=== PATIENT | male | born 1985 | race Caucasian/White ===

== ENCOUNTER 2021-08-15 16:17 | Emergency (ER) | payer OTHER, SELFPAY ==
--- NOTE | ~2021-08-15 | CT_ITS ---
EXAMINATION: CT LUMBAR SPINE WITHOUT CONTRAST CLINICAL INFORMATION: Lower back pain COMPARISON: None TECHNIQUE: Helical axial noncontrast images through the lumbar spine were obtained with coronal and sagittal reformatted images. This CT examination was performed using dose optimization techniques as appropriate, variously including the following: *Automated exposure control *Adjustment of mA and/or kV according to patient size (this includes techniques or standardized protocols for targeted exams where dose is matched to indication/reason for exam; i.e. extremities or head) *Use of iterative reconstruction technique DLP; 547 mGy-cm FINDINGS: Normal sagittal alignment. Vertebral body and disc heights are maintained. No fracture seen. Mild chronic facet arthritic changes on the right at L5-S1. Posterior elements are intact. Normal caliber aorta. No retroperitoneal mass. Mild degenerative changes of the sacroiliac joints, right greater than left. CT/CT lumbar spine wo con IMPRESSION: No acute osseous abnormality of the lumbar spine. No fracture seen.
--- NOTE | ~2021-08-15 | XR_ITS ---
EXAMINATION: PELVIS AND RIGHT KNEE CLINICAL INFORMATION: Pelvic and knee pain COMPARISON: CT lumbar spine same day TECHNIQUE: Single view pelvis, 4 views right knee FINDINGS: The pelvis is slightly rotated. Some minimal degenerative changes are present in the hips. Bony abnormality medial to the left acetabulum is secondary to rotation and is not present on the medical appointment scheduler film for the lumbar spine CT performed just a few minutes afterwords. No fractures are seen. No significant bone joint or soft tissue abnormality is seen involving the right knee. No fracture is seen. XR/XR knee RT 4V IMPRESSION: No evidence of an acute traumatic injury involving the pelvis or right knee.
--- NOTE | ~2021-08-15 | XR_ITS ---
EXAMINATION: XR ankle RT min 3V, XR foot RT min 3V CLINICAL INFORMATION: Pain to ankle. Right foot pain. COMPARISON: None. TECHNIQUE: AP and oblique views of the right ankle. AP, oblique, and lateral views of the right foot. FINDINGS: There is a comminuted fracture of the calcaneus. The lucency extends from the plantar and posterior cortex of the calcaneus to the cortex centrally, possibly involving the subtalar joint. The talus appears intact. The midfoot and metatarsals are normal. The phalanges are normal. No widening of the ankle mortise. The talar dome is intact. XR/XR ankle RT min 3V IMPRESSION: Comminuted fracture of the calcaneus with possible extension to the subtalar joint. The appearance suggests a high energy mechanism of injury which can be associated with other fractures, including compression fractures of the spine. Recommend correlation with history and further imaging as appropriate.
--- NOTE | ~2021-08-15 | CT_ITS ---
EXAMINATION: CT ankle RT wo con CLINICAL INFORMATION: Ankle pain. COMPARISON: Radiographs earlier today TECHNIQUE: Noncontrast helical axial CT images through the right ankle were obtained. FINDINGS: There is a highly comminuted calcaneal fracture with intra-articular extension. The fracture lines extend to the posterior (subtalar) facet, middle facet, and anterior facet with up to 4 mm displacement. The talus is intact. No disruption of the ankle mortise. The distal tibia and fibula are normal. Normal tarsal-metatarsal alignment. Diffuse soft tissue swelling. CT/CT ankle RT wo con IMPRESSION: Highly comminuted calcaneal fracture with intra-articular extension as described above.
--- NOTE | ~2021-08-15 | XR_ITS ---
EXAMINATION: XR ankle RT min 3V, XR foot RT min 3V CLINICAL INFORMATION: Pain to ankle. Right foot pain. COMPARISON: None. TECHNIQUE: AP and oblique views of the right ankle. AP, oblique, and lateral views of the right foot. FINDINGS: There is a comminuted fracture of the calcaneus. The lucency extends from the plantar and posterior cortex of the calcaneus to the cortex centrally, possibly involving the subtalar joint. The talus appears intact. The midfoot and metatarsals are normal. The phalanges are normal. No widening of the ankle mortise. The talar dome is intact. XR/XR foot RT min 3V IMPRESSION: Comminuted fracture of the calcaneus with possible extension to the subtalar joint. The appearance suggests a high energy mechanism of injury which can be associated with other fractures, including compression fractures of the spine. Recommend correlation with history and further imaging as appropriate.
--- NOTE | ~2021-08-15 | XR_ITS ---
EXAMINATION: PELVIS AND RIGHT KNEE CLINICAL INFORMATION: Pelvic and knee pain COMPARISON: CT lumbar spine same day TECHNIQUE: Single view pelvis, 4 views right knee FINDINGS: The pelvis is slightly rotated. Some minimal degenerative changes are present in the hips. Bony abnormality medial to the left acetabulum is secondary to rotation and is not present on the ornamental ironworker helper film for the lumbar spine CT performed just a few minutes afterwords. No fractures are seen. No significant bone joint or soft tissue abnormality is seen involving the right knee. No fracture is seen. XR/XR pelvis 1-2V IMPRESSION: No evidence of an acute traumatic injury involving the pelvis or right knee.
[2021-08-15 16:32] VITALS: BP 160/98; PULSE 80; O2SAT 100
--- NOTE | 2021-08-15 16:40 | ED_ITS ---
HPI - Extremity Injury (Lower) General Chief Complaint: Extremity Injury, Lower Stated Complaint: R Ankle Pain /injury Time Seen by Provider: 08/15/21 16:40 Source: patient and EMS Mode of arrival: EMS Limitations: no limitations History of Present Illness HPI Narrative: This is a 35-year-old male presenting to the emergency department with complaints of right ankle/foot/heel pain status post falling off of a ladder that was on the trailer of a truck about ten feet. Patient landed on bilateral lower extremities, however he thinks most impact was on right foot he immediately started experiencing pain to his right ankle, heel and foot. Pain is worse in heel . He reports 10/10 pain to ankle and foot. Worse with movement better at rest. Tells me he cant bear weight. Able to wiggle bilateral toes, move ankle however with pain. Brought in by EMS.When he fell he did not hit his head, did not lose consciousness. Denies numbness, paresthesias, back pain, knee pain, changes in bowel habits. Appears very uncomfortable. MD complaint: ankle injury and foot injury Onset (ago): minute(s) (30) Type of Injury: blunt Severity: severe Severity scale (1-10): 10 Relieving factors: immobilization Exacerbating factors: movement Context: fall and direct blow Other symptoms: none Related Data Previous Rx's Medication Instructions Recorded oxycodone 5 mg capsule 5 mg PO Q6H PRN #14 cap 08/15/21 Allergies Allergy/AdvReac Type Severity Reaction Status Date / Time Sulfa (Sulfonamide Allergy Unknown Verified 08/15/21 16:56 Antibiotics) Review of Systems Review of Systems: Constitutional : No Fever, No Chills, Cardiovascular : No Chest Pain, No SOB Respiratory : No Dyspnea Gastrointestinal : No abdominal pain Musculoskeletal : No Joint Swelling, + joint pain Skin : No rash, No skin laceration Neuro : No Weakness, No Numbness, No tingling Psych : No SI/HI Yes all other systems are reviewed and are negative [facility] Past Medical History Attestation statement: The following information was validated with the patient. Source: old records reviewed and nursing notes reviewed Medical History (Updated 08/15/21 @ 21:56 by DAYAMI Lyon) Asthma Social History Social History Advance Directives: No Advance Directives Information Provided: No Physical Exam Vital Signs: Vital Signs: Last Vital Signs Temp 98.6 F 08/15/21 16:50 Pulse 86 08/15/21 16:50 Resp 18 08/15/21 16:50 BP 153/78 H 08/15/21 16:50 Pulse Ox 99 08/15/21 16:50 BMI result Body Mass Index 31.6 VSS Appearance: Alert.? Oriented X3.? No acute distress.?Appears uncomfortable Head: Normocephalic, atraumatic, no step-offs or deformities Eyes: Pupils equal, round and reactive to light.? ENT: Pharynx normal.? Neck: Normal inspection.? Neck supple.? CVS: Normal heart rate and rhythm.? Pulses normal.? Respiratory: No respiratory distress.? Breath sounds normal.? Abdomen: Soft and nontender.? Skin: Skin warm and dry.? Normal skin color.? Normal skin turgor.? Extremities: No lower extremity edema.? No calf ttp. 5/5 strength to bilateral upper and lower extremities. Bilateral lower extremities with 2+ DP and PT pulses. Cap refil to bilateral lower extremities < 2 seconds. Full ROM b/l however severe pain with rom of right ankle and toes on right. Severe pain with palpation of right heel. No evident step offs or deformities. No eccymosis or edema b/l to lower extremities. No foot drop b/l Back: No midline tenderness, no C-spine tenderness, full range of motion, no CVA tenderness bilaterally Neuro: Oriented X 3.? No motor deficit.? No sensory deficit. CN 2-12 intact . No saddle paresthesias. Two-point extinction intact to bilateral lower extremities. Course Reevaluation(s) Reevaluation #1: Spoke to ortho Dr. Peña who recommends a bulky love splint- (very well patted splint posterior slab w/ loose padding --> 3 way splint --> soco wrap) . Crutches non weight bearing. See ortho . He also recommends a CT of ankle which has been ordered at this time. Time: 21:53 Reevaluation #2: Patient placed in a Bulky Love Splint by myself and Dr. Dumont. After application of splint neurovascularly intact sensation intact to right lower extremity patient able to wiggle his fingers capillary refill less than 2 seconds. Gave him crutches advised him to return with new and worsening symptoms. I advised him to follow-up with orthopedics on . Time: 21:54 MDM - Extremity Injury (Lower) MDM Narrative Medical decision making narrative: 1643 35 yo m no pmhx presents with severe right ankle/ foot/ heel pain s/p falling off a trailer onto his feet about 10 feet. Reports majory of impact was to RLE. PE w/ 5/5 strength to bilateral upper and lower extremities. Bilateral lower extremities with 2+ DP and PT pulses. Cap refil to bilateral lower extremities < 2 seconds. Full ROM b/l howver pain with rom of right ankle and toes on right. Severe pain with palpation of right heel. No evident step offs or deformities. No eccymosis or edema b/l to lower extremities. No foot drop b/l Likely calcaneus fracture to right Plan- xray. pain meds Due to this injury being a high impact injury I will also obtain films of the lower back to rule out compression fracture. This mechanism injury would put him at high risk of obtaining compression fracture to the lumbar region as well as a compression fracture in the pelvic/knees. Medical Records Attestation: I reviewed the patient's medical records. Lab Data Attestation: I reviewed the patient's lab results. Critical Care Time Critical Care Time Critical Care Time: Yes Total Critical Care Time: 35 Attestation: I attest to this time spent taking care of the patient obtaining history, physical reviewing images, reviewing medical history speaking to a specialist , speaking to my attending. Discharge Plan Discharge Clinical Impression: Comminuted fracture, Calcaneal fracture Patient Disposition: Home, Self-Care Instructions: Crutch Instructions (ED), Calcaneal Fracture (ED), R.I.C.E. Treatment (ED) Additional Instructions: Take your medications as prescribed. If you were prescribed antibiotics today, it is important that you take your medication to their entirety, do not skip any doses, do not finish them early. Follow-up with your primary care provider this week. Follow up with Orthopedics on . Return to the emergency department with new or worsening symptoms. Such as severe pain, swelling to the right lower extremity, loss of sensation, loss of movement of toes to right lower extremity, fevers, chills, shortness of breath, nausea, vomiting, chest pain, tingling. DO NOT bear weight on the lower extremity In case of emergency call 911 Prescriptions: New oxycodone 5 mg capsule 5 mg PO Q6H PRN (Reason: pain) Qty: 14 0RF Rx Instructions: Patient can partially filled prescription upon request Referrals: Kareem Peña MD [Physician] - 3 days Physician,Darryl J [Primary Care Provider] - 2 days Stand Alone Forms: Work/School Release
[2021-08-15 16:50] VITALS: BP 153/78; PULSE 86; RESP 18; TEMP 37; O2SAT 99; BMI 31.6
[2021-08-15] MEDS: HYDROmorphone HCl 1 MG/ML SYRINGE IVPUSH ×2 (17:04→17:06)
[2021-08-15] MEDS: HYDROmorphone HCl 0.5 MG/0.5 ML SYRINGE IVPUSH (20:37)
[2021-08-15 21:41] VITALS: BP 123/71; PULSE 104; RESP 18; O2SAT 97
--- NOTE | 2021-08-16 05:49 | PC.NURSE ---
I assisted with the care of this pt while he was in the ED per request Anitha Yan RN. Per request of Anitha the pt's PA (miracle) was requesting Dilaudid and benadryl, both IVP, for this pt. Neither of these were ordered, so i went into override in [facility] and brought the medicines to the room. At that time the PA informed me that we would not be administering further Dilaudid. Therefore,m I did not administer it and placed it back in my scrub top chest pocket. At this time I attempted to return the Dilaudid with primer charger melina, but we were unable to locate the pts profile in [facility]. Sirisha requested I hold onto the Dilaudid and she will contact thermostatic controls supervisor regarding this.
== END 2021-08-15 23:06 | disposition home or self-care (01) ==
PROVIDERS: Emergency Provider Emergency Medicine
DX: S92.001A Unspecified fracture of right calcaneus, initial encounter for closed fracture (principal); W11.XXXA Fall on and from ladder, initial encounter; Y93.9 Activity, unspecified; Y92.9 Unspecified place or not applicable; Y99.9 Unspecified external cause status
CPT/HCPCS: 72131; 72170; 73564; 73610; 73630; 73700; 96374; 96376; 99283; 99291; J1170

== ENCOUNTER → 2021-08-18 12:11 | Outpatient (BNVA) | payer OTHER, SELFPAY | PROVIDERS: Visit Provider Physician Assistant | DX: S92.001A Unspecified fracture of right calcaneus, initial encounter for closed fracture (principal) | CPT/HCPCS: 29515; 99202 ==